=== PATIENT | female | born 1935 | race Caucasian/White ===

== ENCOUNTER 2016-12-26 11:49 | Emergency (ER) | payer MEDICARE, OTHER ==
[2016-12-26 12:07] VITALS: RESP 18
[2016-12-26] MEDS ORDERED: SODIUM CHLORIDE 0.9% 1,000 ML IV STA (12:30)
[2016-12-26] MEDS ORDERED: LORazepam 2 MG/ML SYRINGE IV STA ×3 (12:33→18:20)
--- NOTE | 2016-12-26 12:38 | ED ---
General Adult HPI - General Chief complaint: Seizure Stated complaint: Seizure Time Seen by Provider: 12/26/16 11:54 Source: family, EMS, RN notes reviewed Mode of arrival: EMS Limitations: altered mental status - History of Present Illness Initial comments: Patient is a pleasant 81-year-old female presenting to the emergency department with family with concerns for seizure. Patient had sudden onset generalized shaking which lasted up to 2 minutes. Following this patient was decreased responsiveness and confused for around 10 minutes. Patient did bite her mouth. No history of similar symptoms previously. Patient is acting anxious at this time which can be normal when she is out of her element otherwise is acting essentially normal. Patient has advanced dementia. No reported recent illness. Patient is unable to provide any significant history. Patient's states frequent inappropriate words. - Related Data Home Medications Medication Instructions Recorded Confirmed ALPRAZolam [Xanax] 0.25 mg PO Q6H PRN 12/26/16 12/26/16 ALPRAZolam [Xanax] 0.5 mg PO BID@0800,1500 12/26/16 12/26/16 Acetaminophen Tab [Tylenol Tab] 500 mg PO Q6H PRN 12/26/16 12/26/16 Artificial Tears-Hypromellose 1 drops BOTH EYES DAILY 12/26/16 12/26/16 [Artificial Tear Drops] Buprenorphine [Butrans 5 MCG/HR] 1 patch TRANSDERM FR 12/26/16 12/26/16 Levothyroxine Sodium [Synthroid] 50 mcg PO HS 12/26/16 12/26/16 Magnesium Hydroxide [Milk of 2,400 mg PO DAILY PRN 12/26/16 12/26/16 Magnesia] Melatonin 3 mg PO HS 12/26/16 12/26/16 Naproxen Sodium [Aleve] 440 mg PO BID 12/26/16 12/26/16 Peppermint Oil [Peppermint] 2 drops TOPICAL DAILY PRN 12/26/16 12/26/16 Pravastatin Sodium [Pravachol] 10 mg PO HS 12/26/16 12/26/16 Sennosides [Senna] 8.6 mg PO W/SUPPER 12/26/16 12/26/16 Uti-Stat Liquid 30 ml PO DAILY 12/26/16 12/26/16 Vitamin B-12 100 mcg PO DAILY 12/26/16 12/26/16 traZODone HCL 50 mg PO HS 12/26/16 12/26/16 Previous Rx's Medication Instructions Recorded Cephalexin [Keflex] 500 mg PO QID #40 cap 12/26/16 levETIRAcetam [Keppra] 500 mg PO Q12HR #60 tab 12/26/16 Allergies Allergy/AdvReac Type Severity Reaction Status Date / Time ciprofloxacin [From Cipro] Allergy Unknown Verified 12/26/16 13:18 ezetimibe [From Vytorin] Allergy Unknown Verified 12/26/16 13:18 hydrocodone bitartrate Allergy Unknown Verified 12/26/16 13:18 [From Vicodin] metronidazole [From Flagyl] Allergy Unknown Verified 12/26/16 13:18 nabumetone [From Relafen] Allergy Unknown Verified 12/26/16 13:18 nitrofurantoin Allergy Unknown Verified 12/26/16 12:07 [From Macrobid] simvastatin [From Vytorin] Allergy Unknown Verified 12/26/16 13:18 Sulfa (Sulfonamide Allergy Unknown Verified 12/26/16 13:18 Antibiotics) sulfabenzamide Allergy Unknown Verified 12/26/16 12:07 Review of Systems ROS Statement: Those systems with pertinent positive or pertinent negative responses have been documented in the HPI. ROS Other: All systems not noted in ROS Statement are negative. Limitations: ROS unobtainable due to patients medical condition Past Medical History Past Medical History: Dementia, Hyperlipidemia, Hypertension, Memory Impairment , Thyroid Disorder History of Any Multi-Drug Resistant Organisms: None Reported Past Surgical History: Breast Surgery, Section, Hysterectomy, Joint Replacement Additional Past Surgical History / Comment(s): esophagheal nephrectomy, diverticulitis of esophagus Past Anesthesia/Blood Transfusion Reactions: No Reported Reaction Additional Past Anesthesia/Blood Transfusion Reaction / Comment(s): difficult airway, special glide scope for intubation Past Psychological History: Depression Smoking Status: Never smoker Past Alcohol Use History: None Reported Past Drug Use History: None Reported General Exam Limitations: altered mental status General appearance: alert Head exam: Present: atraumatic, normocephalic Eye exam: Present: normal appearance ENT exam: Present: other (Limited exam. No gross bleeding.) Neck exam: Present: normal inspection Respiratory exam: Present: normal lung sounds bilaterally Cardiovascular Exam: Present: regular rate, normal rhythm GI/Abdominal exam: Present: soft. Absent: tenderness Extremities exam: Present: normal inspection, full ROM. Absent: tenderness Neurological exam: Present: alert, altered, other (No motor sensory deficit on limited exam) Expanded Patient oriented to: Absent: person, place, time Eye Response: (4) open spontaneously Motor Response: (5) localizes to pain Verbal Response: (3) inappropriate words Psychiatric exam: Present: anxious Skin exam: Present: normal color Course Vital Signs 12/26/16 12/26/16 11:51 14:52 Temperature 97.0 F L Pulse Rate 111 H 88 Respiratory 18 18 Rate Blood Pressure 190/88 147/67 O2 Sat by Pulse 96 95 Oximetry EKG Findings - EKG Comments: EKG Findings:: Sinus rhythm and 98. Motion artifact is present. NE 144. QRS 88. QT 350. QTC 446. Normal axis. Normal QRS. Nonspecific ST-T. Medical Decision Making - Medical Decision Making Patient reevaluated and resting comfortably in bed. Family updated on results. Case was discussed in detail with Dr. Higgins who does feel patient would be better benefited for discharge rather than admission. He is concerned of status ability to take care with her anxiety. This was discussed with family who is comfortable with discharge. Antibiotics will be started. Keppra was recommended by Dr. Higgins 500 mg twice a day. - Lab Data Result diagrams: 12/26/16 12:24 12/26/16 12:24 Lab Results 12/26/16 12/26/16 12/26/16 Range/Units 12:24 12:24 12:24 WBC 8.0 (3.8-10.6) k/uL RBC 4.02 (3.80-5.40) m/uL Hgb 11.5 (11.4-16.0) gm/dL Hct 34.7 (34.0-46.0) % MCV 86.3 (80.0-100.0) fL MCH 28.5 (25.0-35.0) pg MCHC 33.0 (31.0-37.0) g/dL RDW 13.9 (11.5-15.5) % Plt Count 403 (150-450) k/uL Neutrophils % 74 % Lymphocytes % 19 % Monocytes % 5 % Eosinophils % 0 % Basophils % 1 % Neutrophils # 6.0 (1.3-7.7) k/uL Lymphocytes # 1.5 (1.0-4.8) k/uL Monocytes # 0.4 (0-1.0) k/uL Eosinophils # 0.0 (0-0.7) k/uL Basophils # 0.0 (0-0.2) k/uL Sodium 143 (137-145) mmol/L Potassium 4.2 (3.5-5.1) mmol/L Chloride 105 (98-107) mmol/L Carbon Dioxide 23 (22-30) mmol/L Anion Gap 15 mmol/L BUN 21 H (7-17) mg/dL Creatinine 1.04 (0.52-1.04) mg/dL Est GFR (MDRD) Af Amer >60 (>60 ml/min/1.73 sqM) Est GFR (MDRD) Non-Af 51 (>60 ml/min/1.73 sqM) Glucose 154 H (74-99) mg/dL Calcium 10.0 (8.4-10.2) mg/dL Magnesium (1.6-2.3) mg/dL Total Bilirubin 0.9 (0.2-1.3) mg/dL AST 24 (14-36) U/L ALT 23 (9-52) U/L Alkaline Phosphatase 95 (38-126) U/L Total Creatine Kinase 134 (30-135) U/L CK-MB (CK-2) 1.9 (0.0-2.4) ng/mL CK-MB (CK-2) Rel Index 1.4 Troponin I <0.012 (0.000-0.034) ng/mL Total Protein 7.5 (6.3-8.2) g/dL Albumin 4.5 (3.5-5.0) g/dL Urine Color Urine Appearance (Clear) Urine pH (5.0-8.0) Ur Specific [place] (1.001-1.035) Urine Protein (Negative) Urine Glucose (UA) (Negative) Urine Ketones (Negative) Urine Blood (Negative) Urine Nitrite (Negative) Urine Bilirubin (Negative) Urine Urobilinogen (<2.0) mg/dL Ur Leukocyte Esterase (Negative) Urine RBC (0-5) /hpf Urine WBC (0-5) /hpf Urine WBC Clumps (None) /hpf Ur Squamous Epith Cells (0-4) /hpf Urine Bacteria (None) /hpf Hyaline Casts (0-2) /lpf Urine Mucus (None) /hpf 12/26/16 12/26/16 Range/Units 12:24 14:20 WBC (3.8-10.6) k/uL RBC (3.80-5.40) m/uL Hgb (11.4-16.0) gm/dL Hct (34.0-46.0) % MCV (80.0-100.0) fL MCH (25.0-35.0) pg MCHC (31.0-37.0) g/dL RDW (11.5-15.5) % Plt Count (150-450) k/uL Neutrophils % % Lymphocytes % % Monocytes % % Eosinophils % % Basophils % % Neutrophils # (1.3-7.7) k/uL Lymphocytes # (1.0-4.8) k/uL Monocytes # (0-1.0) k/uL Eosinophils # (0-0.7) k/uL Basophils # (0-0.2) k/uL Sodium (137-145) mmol/L Potassium (3.5-5.1) mmol/L Chloride (98-107) mmol/L Carbon Dioxide (22-30) mmol/L Anion Gap mmol/L BUN (7-17) mg/dL Creatinine (0.52-1.04) mg/dL Est GFR (MDRD) Af Amer (>60 ml/min/1.73 sqM) Est GFR (MDRD) Non-Af (>60 ml/min/1.73 sqM) Glucose (74-99) mg/dL Calcium (8.4-10.2) mg/dL Magnesium 2.2 (1.6-2.3) mg/dL Total Bilirubin (0.2-1.3) mg/dL AST (14-36) U/L ALT (9-52) U/L Alkaline Phosphatase (38-126) U/L Total Creatine Kinase (30-135) U/L CK-MB (CK-2) (0.0-2.4) ng/mL CK-MB (CK-2) Rel Index Troponin I (0.000-0.034) ng/mL Total Protein (6.3-8.2) g/dL Albumin (3.5-5.0) g/dL Urine Color Yellow Urine Appearance Cloudy H (Clear) Urine pH 7.0 (5.0-8.0) Ur Specific [place] 1.015 (1.001-1.035) Urine Protein 1+ H (Negative) Urine Glucose (UA) Negative (Negative) Urine Ketones Trace H (Negative) Urine Blood Small H (Negative) Urine Nitrite Positive H (Negative) Urine Bilirubin Negative (Negative) Urine Urobilinogen <2.0 (<2.0) mg/dL Ur Leukocyte Esterase Large H (Negative) Urine RBC 25 H (0-5) /hpf Urine WBC >182 H (0-5) /hpf Urine WBC Clumps Rare H (None) /hpf Ur Squamous Epith Cells 1 (0-4) /hpf Urine Bacteria Many H (None) /hpf Hyaline Casts 2 (0-2) /lpf Urine Mucus Occasional H (None) /hpf - Radiology Data Radiology results: report reviewed (Computed tomography scan of the brain shows no acute intercranial abnormality.), image reviewed (Chest x-ray shows no acute process.) Disposition Clinical Impression: New onset seizure, Urinary tract infection Disposition: HOME SELF-CARE Condition: Stable Instructions: New-Onset Seizure in Adults (ED), Urinary Tract Infection in Women (ED) Additional Instructions: Please follow-up with Dr. Higgins mitigating the week. Return for seizures, change in mental status, weakness, fevers, worsening symptoms or other concerns. Prescriptions: Cephalexin [Keflex] 500 mg PO QID #40 cap levETIRAcetam [Keppra] 500 mg PO Q12HR #60 tab Referrals: Tone Higgins MD [Primary Care Provider] - 1-2 days Time of Disposition: 16:35
[2016-12-26 12:46] LABS: Basophils % (A) 1 %; CH 28.7; CHCM 33.4; Eosinophils % (A) 0 %; HCT 34.7 % (34.0-46.0); HDW 2.41; HGB 11.5 gm/dL (11.4-16.0); Luc # (Auto) 0.14; Luc % (Auto) 2; Lymphocytes # (A) 1.5 k/uL (1.0-4.8); Lymphocytes % (A) 19 %; MCH 28.5 pg (25.0-35.0); MCV 86.3 fL (80.0-100.0); Mean Platelet Volume 6.6; Monocytes # (A) 0.4 k/uL (0-1.0); Monocytes % (A) 5 %; Neutrophils % (A) 74 %; RBC 4.02 m/uL (3.80-5.40); RDW 13.9 % (11.5-15.5); WBC (Perox) 8.32
[2016-12-26 12:56] LABS: ALT 23 U/L (9-52); AST 24 U/L (14-36); Alkaline Phosphatase 95 U/L (38-126); Anion Gap 15 mmol/L; Blood Urea Nitrogen 21 mg/dL (7-17); Carbon Dioxide 23 mmol/L (22-30); Chloride 105 mmol/L (98-107); Glucose 154 mg/dL (74-99); Non-African American GFR(MDRD) 51 (>60 ml/min/1.73 sqM); Potassium 4.2 mmol/L (3.5-5.1); Sodium 143 mmol/L (137-145); Total Bilirubin 0.9 mg/dL (0.2-1.3); Total Protein 7.5 g/dL (6.3-8.2)
[2016-12-26 13:37] LABS: Creatine Kinase 134 U/L (30-135)
--- NOTE | 2016-12-26 13:38 | CT ---
EXAMINATION TYPE: CT brain wo con DATE OF EXAM: 12/26/2016 COMPARISON: Prior head CT 10 January 2015 HISTORY: Seizure CT DLP: 1036 mGycm Automated exposure control for dose reduction was used. FINDINGS: There is no acute intracranial hemorrhage, mass effect, or midline shift identified. The ventricles and sulci are stable. Periventricular white matter shows patchy low attenuation compatible with diesel technician mechanic anuj small vessel ischemia, demyelination. There are cerebral vascular calcifications. 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 The globes are intact and the visualized sinuses are aleshia ar. IMPRESSION: No acute intracranial hemorrhage, mass effect, or midline shift is seen.
[2016-12-26 13:50] LABS: Creatine Kinase MB 1.9 ng/mL (0.0-2.4); Troponin I <0.012 ng/mL (0.000-0.034)
[2016-12-26 15:07] LABS: Appearance,Urine Cloudy (Clear); Bacteria,Urine Many /hpf; Bilirubin,Urine Negative (Negative); Glucose,Urine (UA) Negative (Negative); Ketones,Urine Trace (Negative); Leukocyte Esterase,Urine Large (Negative); Mucus,Urine Occasional /hpf; Nitrite,Urine Positive (Negative); Particle Count 150214; Protein,Urine 1+ (Negative); RBC,Urine 25 /hpf (0-5); Specific Gravity,Urine 1.015 (1.001-1.035); Squamous Epithelial Cell,Urine 1 /hpf (0-4); UA Billing (MACRO vs. MICRO) MICRO; Urobilinogen,Urine <2.0 mg/dL (<2.0); WBC,Urine >182 /hpf (0-5)
--- NOTE | 2016-12-26 15:38 | XR ---
EXAMINATION TYPE: XR chest 1V portable DATE OF EXAM: 12/26/2016 COMPARISON: Prior chest x-ray 10 January 2015 HISTORY: Altered mental status TECHNIQUE: frontal view of the chest is obtained on 2 images. FINDINGS: There is no focal air space opacity, pleural effusion, or pneumothorax seen. The cardiac silhouette size is within normal limits. Patient is rotated. There are overlying cardiac leads. The osseous structures are intact. IMPRESSION: No acute process.
[2016-12-26] MEDS ORDERED: levETIRAcetam IV 500 MG in SODIUM CHLORIDE 0.9% 100 ML IVPB STA (16:34)
[2016-12-26 19:45] VITALS: BP 148/78; PULSE 79; TEMP 98.6
== END 2016-12-26 19:42 | disposition home or self-care (01) ==
LOC: EC 11:49
DX: R56.9 Unspecified convulsions (principal); N39.0 Urinary tract infection, site not specified; E78.5 Hyperlipidemia, unspecified; I10 Essential (primary) hypertension; E07.9 Disorder of thyroid, unspecified; F03.90 Unspecified dementia, unspecified severity, without behavioral disturbance, psychotic disturbance, mood disturbance, and anxiety; F32.9 Major depressive disorder, single episode, unspecified; Z79.1 Long term (current) use of non-steroidal anti-inflammatories (NSAID); Z79.899 Other long term (current) drug therapy; Z88.5 Allergy status to narcotic agent; Z88.1 Allergy status to other antibiotic agents; Z88.2 Allergy status to sulfonamides; Z88.8 Allergy status to other drugs, medicaments and biological substances
CPT/HCPCS: 36415; 93005; 80053; 82550; 82553; 83735; 84484; 85025; 81001; 87086; 87077; 87186; 71010; 70450; 99285; 96365; 96367; 96375; 96376 ×2; 96361 ×3; J2060; J0696; J1953